=== PATIENT | male | born 1960 | race Two or more races ===

== ENCOUNTER 2019-01-19 13:59 | Emergency (ER) | payer OTHER ==
[~2019-01-19] VITALS: Ht 165.1 cm; Wt 74.8 kg
[2019-01-19 15:59] VITALS: BP 113/75
== END 2019-01-19 16:21 | disposition home or self-care (01) ==
LOC: ER 13:59
DX: L02.414 Cutaneous abscess of left upper limb (principal); L02.413 Cutaneous abscess of right upper limb
CPT/HCPCS: 99283; C1887